=== PATIENT | female | born 1950 | race Caucasian/White ===

== ENCOUNTER 2019-12-15 12:50 | Inpatient (IN) | payer OTHER ==
[~2019-12-15] VITALS: Ht 170.2 cm; Wt 72.6 kg
--- NOTE | 2019-12-15 02:50 | NUR ---
PT REFUSED TO HAVE THE TELE MONITOR ON. IF PUT ON PATIENT WILL PULL IT OFF. Addendum: 12/16/19 at 0321 by Franco Mauricio RN TIME OF INTERVENTION 2049 ON 12/15/19
[~2019-12-15 12:50] MED LIST: AMOX-999 PO; METH40TA PO
--- NOTE | 2019-12-15 12:50 | NUR ---
Patient BIBA ALS accompanied by Kristen MCWILLIAMS 151, transferred to bed 4. RN evaluating patient at bedside.
[2019-12-15 12:51] VITALS: BP 120/73
--- NOTE | 2019-12-15 12:51 | NUR ---
PT BIB AMBULANCE, PER [facility], PT'S WITNESSED ZEIZURE AT HOME FOR ABOUT 3-5 MINUTES. PT WAS GIVEN NARCAN 3 MG AND VERSED 5 MG PRIOR TO HOSPITAL .UNABLE TO FOLLOW COMMANDS. FOAMING SECRATION NOTED WHEN PT GOT TO UNIT, SUCTIONED PT. GAVE PT O2 NC 2L/MIN. PT WAS COMBATIVE, PER EMS, THEY INSERTED IV TO PT, PT PULLED OUT. PT HAD HX DRUG ABUSE. SEIZURE PRECAUTION APPLIED TO PT.
[2019-12-15] MEDS ORDERED: LORazepam 2 MG/ML VIAL IM ONE (12:55)
--- NOTE | 2019-12-15 13:05 | NUR ---
Primitivo randle in ED - 12/15/19 at 1456 by KEZIA ATTEMPTED TO DO AN EKG. UNABLE DUE TO PATIENT RIPPING CORDS OFF CHEST AND FLAILING EXTREMITIES. WILL ATTEMPTED AGAIN AFTER MORE MEDICATION GIVEN.
--- NOTE | 2019-12-15 13:05 | NUR ---
ATTEMPTED TO DO AN EKG. UNABLE DUE TO PATIENT RIPPING CORDS OFF CHEST AND FLAILING EXTREMITIES. WILL ATTEMPTED AGAIN AFTER MORE MEDICATION GIVEN. DR. WALSH MADE AWARE.
--- NOTE | 2019-12-15 13:10 | NUR ---
ATTEMPTED ANOTHER EKG, BUT UNABLE TO OBTAIN DUE TO PATIENT STILL FLAILING AROUND. DR. WALSH MADE AWARE.
[2019-12-15] MEDS ORDERED: LORazepam 2 MG/ML VIAL IVP ONE ×2 (13:20→14:40)
[2019-12-15 13:40] LABS: BASOPHILS # (AUTO) 0.1 K/uL (0.00-0.22); BASOPHILS % (AUTO) 1.5 % (0.0-2.0); EOSINOPHILS # (AUTO) 0.1 K/uL (0-0.4); EOSINOPHILS % (AUTO) 1.3 % (0.0-4.0); HEMATOCRIT 42.9 % (36-48); LYMPHOCYTES # (AUTO) 2.7 K/uL (2.5-16.5); LYMPHOCYTES % (AUTO) 32.1 % (20.5-51.1); MEAN CORPUSCULAR HEMOGLOBIN 29 pg (27-31); MEAN CORPUSCULAR HGB CONC 33 g/dL (33-37); MEAN CORPUSCULAR VOLUME 89.9 fL (80-94); MONOCYTES # (AUTO) 0.5 K/uL (0.8-1.0); MONOCYTES % (AUTO) 5.8 % (1.7-9.3); NEUTROPHILS # (AUTO) 5.1 K/uL (1.8-7.7); NEUTROPHILS % (AUTO) 59.3 % (42.2-75.2); PLATELET COUNT (AUTO) 216 K/uL (140-450); RED BLOOD CELL COUNT(AUTO) 4.77 MIL/uL (4.20-5.40); RED CELL DISTRIBUTION WIDTH 13.6 % (11.6-13.7); WHITE BLOOD COUNT (AUTO) 8.5 K/uL (4.8-10.8)
[2019-12-15 14:12] LABS: ALBUMIN 3.7 g/dL (3.4-5.0); ANION GAP 25.2 (8-16); ASPARTATE AMINOTRANSFERASE 21 U/L (15-37); CHLORIDE 102 mmol/L (98-107); CREATININE 1.1 mg/dL (0.6-1.3); GFR ARICAN-AMERICAN 63 mL/min (>90); GLUCOSE 134 mg/dL (74-106); POTASSIUM 3.2 mmol/L (3.5-5.1); SODIUM SERUM 144 mmol/L (136-145); TOTAL BILIRUBIN 0.3 mg/dL (0.0-1.0); UREA NITROGEN, BLOOD 12 mg/dL (7-18)
[2019-12-15 14:13] LABS: ACETAMINOPHEN < 0.5 ug/ml (10-30); SALICYLATE < 2.8 mg/dL (2.8-20.0)
[2019-12-15] MEDS ORDERED: LORazepam 2 MG/ML VIAL ONE ×2 (14:35→20:47)
[2019-12-15] MEDS ORDERED: HALOPERIDOL IM 5 MG/ML VIAL IM ONE (14:35)
--- NOTE | 2019-12-15 14:51 | NUR ---
PT LEFT FOR CT ACOOMPANIED BY STOCKING AND BOX SHOP SUPERVISOR AND VITO RAZA.
--- NOTE | 2019-12-15 15:05 | NUR ---
Patient returned from CT scan. RN re-evaluating patient at bedside.
[2019-12-15 15:49] LABS: APPEARANCE,URINE CLEAR (CLEAR); BILIRUBIN,URINE NEGATIVE (NEGATIVE); BLOOD, URINE 2+ (NEGATIVE); COLOR,URINE YELLOW (YELLOW); LEUKOCYTE ESTERASE ,URINE NEGATIVE (NEGATIVE); NITRITE, URINE POSITIVE (NEGATIVE); UGLUCOSE NEGATIVE (NEGATIVE)
[2019-12-15 15:55] LABS: BARBITURATE, URINE NEG. ng/ml (NEG <=200); BENZODIAZEPINE, URINE POS. ng/mL (NEG <=200); CANNABINOID, URINE POS. ng/mL (NEG <=50); COCAINE, URINE NEG. ng/mL (NEG <=300); OPIATE, URINE NEG. ng/mL (NEG <=2000); PHENCYCLIDINE SCREEN,URINE NEG. ng/mL (NEG <=25)
--- NOTE | 2019-12-15 15:56 | NUR ---
PT COUGHING WITH YELLOWLISH SECRATION NOTED. SUCTIONED PT.
--- NOTE | 2019-12-15 16:00 | NUR ---
PT SKIN CIRCULATION CHECKED . PT TOLERATED WELL.
[2019-12-15 16:52] LABS: RBC,URINE 11-20 (MOD) /HPF (0-5)
[2019-12-15 16:53] LABS: WBC,URINE 0-5 /HPF (0-5)
--- NOTE | 2019-12-15 17:27 | NUR ---
PT RESTING IN BED. VITAL STABLE. O2 SATS 100 %. NO SOB NOTED.
--- NOTE | 2019-12-15 18:00 | NUR ---
PT SKIN CIRCULATION CHECKED . PT TOLERATED WELL.
[2019-12-15] MEDS ORDERED: cefTRIAXone 1,000 MG VIAL ONE (18:44)
--- NOTE | 2019-12-15 19:05 | NUR ---
ENDORSED PT TO PM SHIFT RN. PT VITALS STABLE.
--- NOTE | 2019-12-15 19:15 | NUR ---
REPORT RECEIVED FROM PREVIOUS RN. PATIENT AOX0, BREATHING EVEN AND UNLABORED. PT IS ON RESTRAINTS. PULSE PRESENT +2 ALL EXTREMITIES, CAP REFILL < 3 SECONDS. GRAPHIC EDITOR NOTIFIED NEED OF SITTER AT BEDSIDE. FAMILY AT BEDSIDE. PATIENT IS TRYING TO GET UP FROM BED, FIGHTING RESTRAINTS.
--- NOTE | 2019-12-15 19:58 | NUR ---
SITTER AT BEDSIDE.
--- NOTE | 2019-12-15 20:00 | NUR ---
PATIENT AOX0, BREATHING EVEN AND UNLABORED. PT WAKES UP THEN CONTINUES TO TRY TO LEAVE BED. AND STEPSON AT BEDSIDE.
[2019-12-15] MEDS ORDERED: LORazepam 2 MG/ML VIAL IVP PRN (20:35)
[2019-12-15] MEDS ORDERED: MAGNESIUM OXIDE 400 MG TAB PO PRN (20:35)
[2019-12-15] MEDS ORDERED: ONDANSETRON 4 MG/2 ML VIAL IVP PRN (20:35)
[2019-12-15] MEDS ORDERED: POTASSIUM CHLORIDE 10 MEQ TABER PO PRN (20:35)
[2019-12-15] MEDS ORDERED: DOCUSATE SODIUM 250 MG GELCAP PO PRN (20:35)
[2019-12-15] MEDS ORDERED: ACETAMINOPHEN 650 MG SUPP RC PRN (20:35)
[2019-12-15] MEDS ORDERED: ZOLPIDEM 5 MG TAB PO PRN (20:35)
[2019-12-15] MEDS ORDERED: ACETAMINOPHEN 325 MG TAB PO PRN (20:35)
[2019-12-15 20:45] VITALS: BP 106/52
--- NOTE | 2019-12-15 20:45 | NUR ---
Patient will be admitted to care of DR LOCK. Admited to TELE. Will go to room 122A. Belongings list completed. Report to FREDI PADRON. Sitter at bedside. Melody Cloudtunnel heading supervisor at bedside, aware of pt status and 4 point restraint. Various RNs at bedside to assist with transfer to new bed.
--- NOTE | 2019-12-15 20:45 | NUR ---
REPORT RECEIVED FROM ED NURSE AT BEDSIDE. PT NOT IN STABLE CONDITION. AAOX0. PT IS VERY COMBATIVE AND AGITATED. UNABLE TO TRANSFER PATIENT TO BED DUE TO PATIENT FLAILING AROUND, KICKING HER FEET, AND ATTEMPTING TO BREAK HER ARMS FREE OF THE RESTRAINT. PT ORIGINALLY CAME IN WITH 4 POINT RESTRAINTS. CALLED ED AND TOLD THEM THAT WE CANNOT ACCEPT PATIENTS WITH 4 POINT RESTRAINTS BUT SAID THAT THEY CANNOT TAKEN PATIENT BACK WHEN THEY LEAVE THE ED. ALSO AT BEDSIDE TELLING HER TO CALM DOWN AND BREAKING DOWN EMOTIONALLY. PT WILL NOT LISTEN TO WHAT ANYONE SAYS AND IS VERY CONFUSED. I CALLED THE MD TO INFORM HIM OF PATIENT AGITATION. MD ORDERED SOFT WRIST RESTRAINTS BILATERAL HANDS AND ATIVAN IVP Q2H PRN FOR AGITATION/ANXIETY. MRSA SWAB TAKEN AND SENT TO LAB. PT IS AMBULATORY. NO COMPLAINTS OF PAIN. NO SOB ON 2L O2 VIA NC. AFEBRILE. IV SITE R FA 22G SL PATENT AND INTACT. SKIN WARM, DRY, AND INTACT WITH NO OPEN WOUNDS. BED LOCKED IN LOW POSITION. CALL CARVAJAL WITHIN REACH. SAFETY PRECAUTION IN PLACE. ALL NEEDS MET AT THIS TIME. Addendum: 12/16/19 at 0309 by Franco Mauricio RN PT HAS BRUISING ON THE ARMS.
[2019-12-15] MEDS: LORazepam 2 MG/ML VIAL IVP PRN ×2 (20:50→22:51)
--- NOTE | 2019-12-15 20:50 | NUR ---
ATIVAN GIVEN FOR AGITATION. PT TOLERATED WELL.
--- NOTE | 2019-12-15 21:00 | NUR ---
AWAITING ORDERS FROM MD. EXPLAINED TO HIM THE SITUATION OF THE PATIENT'S AGITATION LEVEL. HE ORDERED SOFT WRIST RESTRAINTS AND ATIVAN 1MG IVP Q2H PRN FOR AGITATION/ANXIETY. HOLLEY.
--- NOTE | 2019-12-15 21:00 | NUR ---
ROCEPHIN HELD DUE TO PT ALREADY RECEIVING IT IN THE ER.
[2019-12-15] MEDS ORDERED: HALOPERIDOL IM 5 MG/ML VIAL IM PRN (22:10)
--- NOTE | 2019-12-15 22:10 | NUR ---
HALDOL GIVEN FOR AGITATION. PT TOLERATED WELL.
[2019-12-15] MEDS ORDERED: HALOPERIDOL IM 5 MG/ML VIAL ONE (22:13)
--- NOTE | 2019-12-15 22:30 | NUR ---
PT ACCIDENTALLY PULLED OUT IV. CANNULA INTACT. WILL ATTEMPT TO INSERT NEW IV. Addendum: 12/17/19 at 0251 by Franco Mauricio RN INTERVENTION DONE ON 12/16/19
--- NOTE | 2019-12-15 22:51 | NUR ---
ATIVAN GIVEN FOR AGITATION. PT TOLERATED WELL.
[2019-12-16] VITALS: BP 110/67
--- NOTE | 2019-12-16 | NUR ---
PATIENT WILL OCCASIONALLY WAKE UP AND BECOME EXTREMELY AGITATED. UNABLE TO CONSOLE OR CALM HER DOWN AGAIN. PT FLAILS AND KICKS HER LEGS UP IN TO THEIR AIR. PULLS TIGHTLY ON THE SOFT WRIST RESTRAINTS. PT STATES SHE WANTS TO GET OFF OF THE RESTRAINTS AND NEEDS TO USE THE BATHROOM TO URINATE. PT HAS A RODRIGUEZ. PATIENT IS AAOX0 AND EXTREMELY CONFUSED AND COMBATIVE WHILE AWAKE. WENT HOME AROUND 2029 AND HE WAS NOT ABLE TO GET HER UNDER CONTROL. HE LEFT UNDER DURESS AND WAS ALSO NOT ABLE TO CONTAIN HIS EMOTIONS. Addendum: 12/16/19 at 0307 by Franco Mauricio RN PATIENT'S RODRIGUEZ IS NOW DRAINING CONDE COLORED URINE DUE TO TUGGING AT THE RODRIGUEZ. WILL ENDORSE TO AM SHIFT.
[2019-12-16] MEDS: LORazepam 2 MG/ML VIAL IVP PRN ×2 (01:30→05:08)
--- NOTE | 2019-12-16 01:30 | NUR ---
ATIVAN GIVEN FOR AGITATION. PT TOLERATED WELL.
--- NOTE | 2019-12-16 03:00 | NUR ---
PT SLEEPING COMFORTABLY IN THE RESTRAINTS. NO S/S OF DISTRESS OR INJURY NOTED AT THE RESTRAINT SITE. WILL CONTINUE TO MONITOR.
--- NOTE | 2019-12-16 03:10 | NUR ---
ATTEMPTED TO PUT ON TELE. PATIENT REFUSED AND BECAME AGITATED AND COMBATIVE.
[2019-12-16 04:00] VITALS: BP 107/67
--- NOTE | 2019-12-16 05:08 | NUR ---
ATIVAN GIVEN FOR AGITATION. PT TOLERATED WELL.
[2019-12-16 06:08] LABS: BASOPHILS # (AUTO) 0.1 K/uL (0.00-0.22); BASOPHILS % (AUTO) 0.5 % (0.0-2.0); EOSINOPHILS % (AUTO) 0.1 % (0.0-4.0); HEMATOCRIT 40.9 % (36-48); HEMOGLOBIN 13.2 g/dL (12.0-16.0); LYMPHOCYTES # (AUTO) 1.2 K/uL (2.5-16.5); LYMPHOCYTES % (AUTO) 7.8 % (20.5-51.1); MEAN CORPUSCULAR HEMOGLOBIN 30 pg (27-31); MEAN CORPUSCULAR HGB CONC 32 g/dL (33-37); MEAN CORPUSCULAR VOLUME 91.6 fL (80-94); MONOCYTES # (AUTO) 0.9 K/uL (0.8-1.0); MONOCYTES % (AUTO) 6.2 % (1.7-9.3); NEUTROPHILS # (AUTO) 12.8 K/uL (1.8-7.7); NEUTROPHILS % (AUTO) 85.4 % (42.2-75.2); PLATELET COUNT (AUTO) 154 K/uL (140-450); RED BLOOD CELL COUNT(AUTO) 4.47 MIL/uL (4.20-5.40); RED CELL DISTRIBUTION WIDTH 13.5 % (11.6-13.7)
--- NOTE | 2019-12-16 06:20 | NUR ---
PT SLEEPING COMFORTABLY BUT WHEN AWAKE IS AGITATED AND COMBATIVE. PT KICKING, CONFUSED, AND SCREAMING DURING LINEN CHANGE.
[2019-12-16 06:45] LABS: ALBUMIN 3.3 g/dL (3.4-5.0); ANION GAP 13.5 (8-16); CARBON DIOXIDE 28.2 mmol/L (21-32); POTASSIUM 3.7 mmol/L (3.5-5.1); TOTAL BILIRUBIN 0.8 mg/dL (0.0-1.0)
--- NOTE | 2019-12-16 07:20 | NUR ---
RECEIVED BEDSIDE SHIFT REPORT FROM SYSTEMS MANAGEMENT CONSULTANT NURSE FOR CONTINUATION OF CARE.
[2019-12-16 08:00] VITALS: BP 105/58
--- NOTE | 2019-12-16 08:40 | NUR ---
PATIENT HAS BEEN SCREENED AND CATEGORIZED LOW NUTRITION RISK. PATIENT WILL BE SEEN WITHIN 7 DAYS OF ADMISSION. 12/22/[address]
[2019-12-16] MEDS ORDERED: METHADONE HCL 100 MG PO SCH ×2 (09:00→15:09)
--- NOTE | 2019-12-16 09:36 | NUR ---
PATIENT LINEN CHANGED, SPONGE BATH GIVEN, BOWEL MOVEMENT NOTED TO BE DARK GREEN AND SLIGHTLY FORMED, SMALL AMOUNT. RODRIGUEZ CATHETER IN TACT, DRAINING SMALL AMOUNT OF DARK ROHINI URINE. PATIENT IS ORIENTED TO THE HOSPITAL AND ALERT WITH MILD VERBAL AND/OR PAINFUL STIMULI. SHE IS AAOX2/3. PAGE SENT TO DR. MABRY TO CLARIFY METHADONE DOSE PROVIDED BY [facility] [place]. PATIENT HAS NOTABLE GENERALIZED WEAKNESS EVIDENCED BY UNSTEADY GAIT AND POOR BALANCE. BED IS IN LOW POSITION, CALL LIGHT ON AND WITHIN REACH. PATIENT REMAINS ON A 1:1 TO CONTRACT FOR SAFETY. WILL CONTINUE TO MONITOR.
--- NOTE | 2019-12-16 10:22 | NUR ---
Delivery And Mail Sorter Note: SW attempted to conduct screening. Per nurse, patient was sedated. SW will follow up at a later time.
--- NOTE | 2019-12-16 10:31 | NUR ---
DISCHARGE PLANNING: THIS IS A 69 Y/O FEMALE FROM HOME, WHO WAS BIBA DUE TO SEIZURE. INITIAL DIAGNOSIS OF SEIZURE AND UTI. CURRENT LABS INCLUDE WBC 15, H/H 13.2/40.9, NA/K 142/3.7, BUN/CREA 15/1.0. UDS SHOWED POSITIVE FOR BENZO AND AMPHETAMINES. MRSA NARES, BLOOD AND URINE CULTURES PENDING. ON ROCEPHIN. NEURO CONSULT WITH DR. STORY IN PLACE. DC PLAN BACK TO HOME ONCE STABLE. Addendum: 12/18/19 at 1606 by Sherri Pierce DC PLANNING: PT HAS A DC ORDER TO GO HOME WITH HOME HEALTH PER NASIM[facility] AT [facility] [phone] ARRANGED THE HOME HEALTH AND ALSO ARRANGED HIGH RISK CLINIC VISIT WITH [facility]. NASIMA SPOKE WITH PT AND PATIENTS .
[2019-12-16 12:00] VITALS: BP 111/47
--- NOTE | 2019-12-16 12:00 | NUR ---
PATIENT IS SLEEPING IN BED, VERY LETHARGIC AND AWAKENS TO SHAKING. SHE IS IRRITABLE WHEN WOKEN UP. VITAL SIGNS ARE STABLE, OBSERVED CHEST RISE AND FALL, REMAINS ON 1:1 FOR SAFETY AND TO PREVENT INTERRUPTION OF MEDICAL CARE. SHE IS OFF WRIST RESTRAINTS AND IS COMPLIANT WITH CARE AND TREATMENT. VISITORS HAVE COME BY. HER RIGHT FOREARM IV IS SALINE FLUSHED AND PATENT AND FUNCTIONING WELL. WILL CONTINUE TO MONITOR.
[2019-12-16] MEDS ORDERED: METHADONE 10 MG TAB PO SCH (14:45)
--- NOTE | 2019-12-16 14:56 | NUR ---
PATIENT WRIST RESTRAINTS WERE DC'D PER MD'S ORDERS. PATIENT TOLERATING WELL. PATIENT REMAINS ASLEEP AND RESPONDS TO MODERATE AROUSAL. VITAL SIGNS ARE STABLE. WILL CONTINUE TO MONITOR. SKIN INTACT.
[2019-12-16 16:00] VITALS: BP 112/52
[2019-12-16] MEDS: NACL 0.9% 1,000 ML IV SCH (16:22)
--- NOTE | 2019-12-16 17:02 | NUR ---
PATIENT IS RESTING IN BED, RODRIGUEZ CATHETER INTACT AND DRAINING 150 MLS OF DARK YELLOW URINE. SAMPLE OF URINE SENT UP TO THE LAB FOR MYOGLOBIN TESTING PER MD'S ORDERS. PATIENT IS AAOX3, VERY LETHARGIC AND GENERALIZED WEAKNESS. PATIENT IS VERBAL AT TIMES. PATIENT CANNOT RECALL THE REASON FOR HER HOSPITALIZATION AND REQUIRES REORIENTING. NEUROLOGY FOLLOW UP POST DISCHARGE ENCOURAGED BY DR. BOOTH. EDUCATED ON THE IMPORTANCE OF REPORTING SIGNS AND SYMPTOMS OF CONFUSION OR ALTERED LEVEL OF CONSCIOUSNESS. BED IN LOW POSITION, CALL LIGHT ON AND WITHIN REACH. WILL CONTINUE TO MONITOR.
[2019-12-16 17:32] LABS: ANION GAP 13.4 (8-16); CARBON DIOXIDE 29.8 mmol/L (21-32); CREATININE 0.8 mg/dL (0.6-1.3); POTASSIUM 3.2 mmol/L (3.5-5.1); TOTAL BILIRUBIN 0.9 mg/dL (0.0-1.0)
--- NOTE | 2019-12-16 19:24 | NUR ---
BEDSIDE SHIFT REPORT GIVEN TO WOODS BOSS NURSE FOR CONTINUATION OF CARE.
--- NOTE | 2019-12-16 19:25 | NUR ---
REPORT RECEIVED FROM AM NURSE AT BEDSIDE. PT IN STABLE CONDITION. AAOX1-2. INTRODUCED SELF TO PT. BOARD UPDATED. NO COMPLAINTS OF PAIN. NO SOB. AFEBRILE. PT IS AMBULATORY. PT HAS RODRIGUEZ. PT NO LONGER NEEDS A SITTER. IV SITE R FA 22G RUNNING NS@100ML/HR PATENT AND INTACT. SKIN WARM, DRY, AND INTACT WITH NO OPEN WOUNDS. BED LOCKED IN LOW POSITION. CALL CARVAJAL WITHIN REACH. SAFETY PRECAUTION IN PLACE. ALL NEEDS MET AT THIS TIME.
[2019-12-16 20:00] VITALS: BP 153/48
--- NOTE | 2019-12-16 20:05 | NUR ---
RPUDENCIO TONY AND RUNNING. PT TOLERATING WELL.
--- NOTE | 2019-12-16 22:15 | NUR ---
PT SLEEPING COMFORTABLY BUT AROUSABLE. NO S/S OF DISTRESS NOTED. NO SZ ACTIVITY ON MY SHIFT. WILL CONTINUE TO MONITOR.
[2019-12-17] VITALS: BP 94/43
--- NOTE | 2019-12-17 00:30 | NUR ---
ATTEMPTED TO INSERT IV UNSUCCESSFULLY. WILL TRY AGAIN.
--- NOTE | 2019-12-17 02:30 | NUR ---
PT SLEEPING COMFORTABLY BUT AROUSABLE. NO S/S OF DISTRESS NOTED. NO COMPLAINTS OF PAIN. NO SOB. AFEBRILE. WILL CONTINUE TO MONITOR.
[2019-12-17 04:00] VITALS: BP 118/59
[2019-12-17] MEDS: NACL 0.9% 1,000 ML IV SCH ×3 (04:14→21:45)
--- NOTE | 2019-12-17 04:30 | NUR ---
PT SLEEPING COMFORTABLY BUT AROUSABLE. NO S/S OF DISTRESS NOTED. RESPIRATIONS EVEN, UNLABORED, AND WNL. WILL CONTINUE TO MONITOR.
--- NOTE | 2019-12-17 06:05 | NUR ---
PT SLEEPING COMFORTABLY BUT AROUSABLE. NO S/S OF DISTRESS NOTED. WILL CONTINUE TO MONITOR.
--- NOTE | 2019-12-17 07:12 | NUR ---
REPORT GIVEN TO AM NURSE AT BEDSIDE. PT IN STABLE CONDITION.
--- NOTE | 2019-12-17 07:12 | NUR ---
RECEIVED BEDSIDE REPORT FROM NIGHT NURSE, PT IS STABLE, ASLEEP IN BED, SAFETY MEASURES IN PLACE, PT HAS LEFT WRIST 22G RUNNING NS AT 100ML, RODRIGUEZ CATH IN PLACE, UPDATED WHITEBOARD, WILL CONTINUE TO MONITOR, CALL LIGHT WITHIN REACH,
[2019-12-17 07:49] LABS: BASOPHILS % (AUTO) 0.2 % (0.0-2.0); EOSINOPHILS % (AUTO) 0.1 % (0.0-4.0); HEMATOCRIT 40.1 % (36-48); HEMOGLOBIN 13.4 g/dL (12.0-16.0); LYMPHOCYTES # (AUTO) 1.5 K/uL (2.5-16.5); LYMPHOCYTES % (AUTO) 13.8 % (20.5-51.1); MEAN CORPUSCULAR HEMOGLOBIN 30 pg (27-31); MEAN CORPUSCULAR HGB CONC 33 g/dL (33-37); MEAN CORPUSCULAR VOLUME 89.3 fL (80-94); MONOCYTES # (AUTO) 0.6 K/uL (0.8-1.0); MONOCYTES % (AUTO) 5.8 % (1.7-9.3); NEUTROPHILS # (AUTO) 8.8 K/uL (1.8-7.7); NEUTROPHILS % (AUTO) 80.1 % (42.2-75.2); PLATELET COUNT (AUTO) 178 K/uL (140-450); RED BLOOD CELL COUNT(AUTO) 4.49 MIL/uL (4.20-5.40); RED CELL DISTRIBUTION WIDTH 13.4 % (11.6-13.7)
[2019-12-17 08:00] VITALS: BP 120/58
[2019-12-17 08:09] LABS: ANION GAP 10.9 (8-16); CARBON DIOXIDE 30.5 mmol/L (21-32); CREATININE 0.9 mg/dL (0.6-1.3); POTASSIUM 3.4 mmol/L (3.5-5.1); TOTAL BILIRUBIN 0.6 mg/dL (0.0-1.0)
[2019-12-17] MEDS ORDERED: METHADONE HCL 100 MG PO SCH (09:00)
[2019-12-17] MEDS: ENOXAPARIN 40 MG/0.4 ML SYR SUBQ SCH (09:17)
[2019-12-17] MEDS ORDERED: METHADONE 10 MG TAB PO SCH (10:30)
--- NOTE | 2019-12-17 10:44 | NUR ---
HELPED PT USE THE BEDSIDE COMMODE, PT NEEDS ASSIST TO SIT ON COMMODE, PT NEEDS HELP GETTING BACK IN BED AND LIFTING HER LEGS INTO BED, PT STABLE, CALL LIGHT WITHIN REACH, WILL CONTINUE TO MONITOR. Addendum: 12/17/19 at 1610 by Vee Kothari RN WRONG PT
[2019-12-17 12:00] VITALS: BP 130/54
--- NOTE | 2019-12-17 13:30 | NUR ---
PT RESTING IN BED, NO SIGNS OF DISTRESS, RESPIRATIONS ARE EVEN AND UNLABORED ON ROOM AIR, CALL LIGHT WITHIN REACH.
[2019-12-17] MEDS ORDERED: VALPROATE SODIUM 1,000 MG in NACL 0.9% 100 ML IV SCH (15:00)
--- NOTE | 2019-12-17 15:00 | NUR ---
PT ASLEEP IN BED, PT IS STABLE, CALL LIGHT WITHIN REACH.
[2019-12-17 16:00] VITALS: BP 116/61
--- NOTE | 2019-12-17 19:30 | NUR ---
GAVE REPORT TO NIGHT NURSE FOR CONTINUITY OF CARE, PT STABLE.
--- NOTE | 2019-12-17 19:31 | NUR ---
HELPED PT USE THE BEDSIDE COMMODE, PT NEEDS ASSIST TO THE BATHROOM 1 BM NOTED, PT NEEDS HELP GETTING BACK IN BED AND LIFTING HER LEGS INTO BED, PT STABLE, CALL LIGHT WITHIN REACH, WILL CONTINUE TO MONITOR.
--- NOTE | 2019-12-17 19:31 | NUR ---
REPORT RECEIVED FROM AM NURSE AT BEDSIDE. PT IN STABLE CONDITION. AAOX1-2. INTRODUCED SELF TO PT. W/ AT BEDSIDE.NO COMPLAINTS OF PAIN. NO SOB. AFEBRILE. PT IS AMBULATORY. PT HAS RODRIGUEZ. PT NO LONGER NEEDS A SITTER. IV SITE LEFT HAND 24G RUNNING NS@100ML/HR PATENT AND INTACT. SKIN WARM, DRY, AND INTACT WITH NO OPEN WOUNDS. BED LOCKED IN LOW POSITION. CALL CARVAJAL WITHIN REACH. SAFETY PRECAUTION IN PLACE. ALL NEEDS MET AT THIS TIME.
[2019-12-17 20:00] VITALS: BP 108/60
[2019-12-17] MEDS: DIVALPROEX 500 MG TABEC PO SCH (20:07)
--- NOTE | 2019-12-17 20:57 | NUR ---
PT NOW SLEEPING, CALM WILL CONTINUE TO MONITOR
--- NOTE | 2019-12-17 23:00 | NUR ---
PT'S CALLED TO CHECK ON ; INFORMED HER PT COMFORTABLE AND SLEEPING AT THIS TIME
[2019-12-18] VITALS: BP 108/60
[2019-12-18 04:00] VITALS: BP 110/60
--- NOTE | 2019-12-18 04:14 | NUR ---
PT STILL SLEEPING BY CAN EASILY AWAKENED BY TACTILE STIMULI.
[2019-12-18] MEDS: NACL 0.9% 1,000 ML IV SCH (04:35)
[2019-12-18 07:10] LABS: BASOPHILS # (AUTO) 0.1 K/uL (0.00-0.22); BASOPHILS % (AUTO) 0.7 % (0.0-2.0); EOSINOPHILS # (AUTO) 0.1 K/uL (0-0.4); EOSINOPHILS % (AUTO) 0.7 % (0.0-4.0); HEMATOCRIT 34.6 % (36-48); LYMPHOCYTES # (AUTO) 1.9 K/uL (2.5-16.5); LYMPHOCYTES % (AUTO) 19.2 % (20.5-51.1); MEAN CORPUSCULAR HEMOGLOBIN 30 pg (27-31); MEAN CORPUSCULAR HGB CONC 35 g/dL (33-37); MEAN CORPUSCULAR VOLUME 88.1 fL (80-94); MONOCYTES # (AUTO) 0.9 K/uL (0.8-1.0); MONOCYTES % (AUTO) 8.9 % (1.7-9.3); NEUTROPHILS # (AUTO) 7.1 K/uL (1.8-7.7); NEUTROPHILS % (AUTO) 70.5 % (42.2-75.2); PLATELET COUNT (AUTO) 161 K/uL (140-450); RED BLOOD CELL COUNT(AUTO) 3.93 MIL/uL (4.20-5.40); RED CELL DISTRIBUTION WIDTH 13.1 % (11.6-13.7)
--- NOTE | 2019-12-18 07:10 | NUR ---
RECEIVED REPORT FROM NIGHT NURSE, PT IS AAOX3, PT IS STABLE, PT HAS LEFT WRIST 24G RUNNING NORMAL SALINE AT 100 ML, RODRIGUEZ CATH IN PLACE, INTRODUCE SELF, UPDATE WHITE BOARD, SAFETY MEASURES IN PLACE, CALL LIGHT WITHIN REACH, WILL CONTINUE TO MONITOR.
[2019-12-18 07:56] LABS: ALBUMIN 2.6 g/dL (3.4-5.0); ANION GAP 9.8 (8-16); CARBON DIOXIDE 29.8 mmol/L (21-32); CREATININE 0.7 mg/dL (0.6-1.3); POTASSIUM 3.6 mmol/L (3.5-5.1); TOTAL BILIRUBIN 0.5 mg/dL (0.0-1.0)
[2019-12-18 08:00] VITALS: BP 109/58
[2019-12-18] MEDS: DIVALPROEX 500 MG TABEC PO SCH (08:46)
[2019-12-18] MEDS: ENOXAPARIN 40 MG/0.4 ML SYR SUBQ SCH (08:47)
--- NOTE | 2019-12-18 08:47 | NUR ---
GAVE PT ORDERED MEDICATION, EDUCATION GIVEN, PT VERBALIZED UNDERSTANDING, PT IS STABLE, NO SIGNS OF DISTRESS NOTED, CALL LIGHT WITHIN REACH.
[2019-12-18] MEDS ORDERED: METHADONE 10 MG TAB PO SCH (09:00)
--- NOTE | 2019-12-18 11:00 | NUR ---
PT IS RESTING IN BED, AT BEDSIDE, NO SIGNS OF DISTRESS NOTED, CALL LIGHT WITHIN REACH.
[2019-12-18 12:00] VITALS: BP 116/58
--- NOTE | 2019-12-18 13:10 | NUR ---
PT IS SITTING IN HER BED, PT IS STABLE, NO SIGNS OF DISTRESS NOTED, CALL LIGHT WITHIN REACH.
[2019-12-18] MEDS ORDERED: [UNRECOGNIZED DRUG - CODE] PO (13:16)
[2019-12-18] MEDS ORDERED: CEPH-1019 PO (13:16)
[2019-12-18] MEDS ORDERED: DIVA500E2 PO (13:16)
--- NOTE | 2019-12-18 16:05 | NUR ---
PT DISCHARGED FROM THE HOSPITAL, PT IS STABLE, RODRIGUEZ CATH REMOVED, IV REMOVED AND INTACT, PT WAS WHEELED OUT OF THE HOSPITAL TO CAR, PT AMBULATE AND GOT INTO THE CAR WITH ASSISTANCE, PT REFUSED FLU AND PNA VACCINE.
== END 2019-12-18 16:05 | disposition home or self-care (01) | DRG 100 ==
LOC: MED 12:50 → MTU 19:07
PROVIDERS: ADMIT Hospitalist; ATTEND Hospitalist
DX: G40.409 Other generalized epilepsy and epileptic syndromes, not intractable, without status epilepticus (principal); R65.11 Systemic inflammatory response syndrome (SIRS) of non-infectious origin with acute organ dysfunction; N39.0 Urinary tract infection, site not specified; F11.20 Opioid dependence, uncomplicated; E87.6 Hypokalemia; N18.3 Chronic kidney disease, stage 3 (moderate); F12.10 Cannabis abuse, uncomplicated; G40.909 Epilepsy, unspecified, not intractable, without status epilepticus; R82.3 Hemoglobinuria; Z79.899 Other long term (current) drug therapy; Z78.1 Physical restraint status
CPT/HCPCS: 36415; 70450; 71045; 80053; 80305; 81001; 81003; 82553; 83874; 84484; 85025; 87040; 87081; 87086; 87186; 93005; 96365; 96372; 96375; 97112; 97116; 97161-GP; 99285; G0480; G0482; J0696; J1630; J1650; J2060; J3490; J7030; J7060; Q0092

== ENCOUNTER 2020-01-25 06:20 | Emergency (ER) | payer OTHER ==
[~2020-01-25] VITALS: Ht 165.1 cm; Wt 59.0 kg
[2020-01-25 06:20] VITALS: BP 111/50
[~2020-01-25 06:20] MED LIST changes: -AMOX-999 PO; +CEPH-1019 PO; +DIVA500E2 PO; +[UNRECOGNIZED DRUG - CODE] PO
--- NOTE | 2020-01-25 06:20 | NUR ---
Dr. Lau examining patient.
--- NOTE | 2020-01-25 06:20 | NUR ---
PT SENAIT ALS. TAKEN TO BED 4
--- NOTE | 2020-01-25 06:20 | NUR ---
69 Y/O FEMALE BROUGHT INTO ER BY BLS. BLS STATED THEY WERE CALLED OUT DUE TO PT HAVING SEIZURE. BLS STATED THEY SEEN PT HAVING SEIZURE, HOWEVER ARE UNAWARE OF HOW LONG THE SEIZURE HAD BEEN GOING ON. BLS ALSO STATED PT WAS COMBATIVE, ON RESTRAINTS. UPON ARRIVAL, PT WAS POSTICTAL ABLE TO FOLLOW COMMANDS, NON VERBAL AT THIS TIME. NO OTHER MEDICAL HX. NO SEIZURE ACTIVITY AT THIS TIME. VSS. NKDA. RESTING IN BED QUIETLY, SIDERAILX 2, SEIZURE PADS IN PLACE. WILL CONTINUE TO MONITOR.
[2020-01-25] MEDS ORDERED: NACL 0.9% 1,000 ML IV ONE (06:25)
[2020-01-25] MEDS ORDERED: levETIRAcetam 500 MG in NACL 0.9% 100 ML IV ONE (06:25)
--- NOTE | 2020-01-25 06:35 | NUR ---
X-Ray at bedside.
[2020-01-25] MEDS ORDERED: levETIRAcetam 100 MG/ML VIAL IV ONE (06:38)
--- NOTE | 2020-01-25 06:50 | NUR ---
PT ALERT TO NAME, FOLLOWING COMMANDS. STATES SHE DOESN'T REMEMBER WHAT HAPPENEND. PT'S SIGNIFICANT OTHER IN LOBBY STATES PT WAS PUT ON DEPAKOTE 500MG QD LAST MONTH FOR SEIZURES, AND MAINTENANCE DOSE OF METHADONE LAST MONTH.
[2020-01-25 07:04] LABS: BASOPHILS # (AUTO) 0.1 K/uL (0.00-0.22); BASOPHILS % (AUTO) 0.8 % (0.0-2.0); EOSINOPHILS # (AUTO) 0.1 K/uL (0-0.4); EOSINOPHILS % (AUTO) 1.1 % (0.0-4.0); HEMATOCRIT 45.1 % (36-48); HEMOGLOBIN 14.6 g/dL (12.0-16.0); LYMPHOCYTES # (AUTO) 1.2 K/uL (2.5-16.5); LYMPHOCYTES % (AUTO) 18.8 % (20.5-51.1); MEAN CORPUSCULAR HEMOGLOBIN 30 pg (27-31); MEAN CORPUSCULAR HGB CONC 32 g/dL (33-37); MEAN CORPUSCULAR VOLUME 92.8 fL (80-94); MONOCYTES # (AUTO) 0.3 K/uL (0.8-1.0); MONOCYTES % (AUTO) 4.6 % (1.7-9.3); NEUTROPHILS # (AUTO) 4.9 K/uL (1.8-7.7); NEUTROPHILS % (AUTO) 74.7 % (42.2-75.2); PLATELET COUNT (AUTO) 175 K/uL (140-450); RED BLOOD CELL COUNT(AUTO) 4.86 MIL/uL (4.20-5.40); RED CELL DISTRIBUTION WIDTH 13.8 % (11.6-13.7); WHITE BLOOD COUNT (AUTO) 6.6 K/uL (4.8-10.8)
[2020-01-25 07:18] LABS: ALBUMIN 3.8 g/dL (3.4-5.0); ANION GAP 14.5 (8-16); CARBON DIOXIDE 29.1 mmol/L (21-32); POTASSIUM 3.6 mmol/L (3.5-5.1); TOTAL BILIRUBIN 0.2 mg/dL (0.0-1.0)
--- NOTE | 2020-01-25 07:28 | NUR ---
RECIEVED REPORT FROM VITO FRANCOIS. PT IN BED SLEEPING , WITH STABLE V/S , SEIZURE PRECAUTION ON.
--- NOTE | 2020-01-25 07:28 | NUR ---
EDILBERTO IV FLUIDS COMPLETED
--- NOTE | 2020-01-25 07:29 | NUR ---
TRANSFER OF CARE TO VITO FISHMAN
--- NOTE | 2020-01-25 08:24 | NUR ---
PT IN BED ASLEEP , SIDE RAILS UP WITH PADS X 2 AND LOCK.
[2020-01-25] MEDS ORDERED: METHADONE 10 MG TAB PO ONE (09:10)
--- NOTE | 2020-01-25 09:18 | NUR ---
CALLED TO VERIFY DOSAGE OF METHADONE BEING TAKEN AT HOME.
--- NOTE | 2020-01-25 09:49 | NUR ---
PT IN BED AWAKE , ALERT , AFIBRILE .
--- NOTE | 2020-01-25 09:52 | NUR ---
PT AOX 2 , ALTERED LOC.
--- NOTE | 2020-01-25 10:00 | NUR ---
PT WENT TO RESTROOM ,AMBULATORY WITH STEADY GAIT .PT STATES SHE ONE EPISODE OF SEIZURE AND THIS IS THE SECOND ONE.
--- NOTE | 2020-01-25 10:12 | NUR ---
PT IN BACK FROM RESTROOM.
[2020-01-25 10:30] VITALS: BP 122/60
--- NOTE | 2020-01-25 10:30 | NUR ---
Patient to be transferred to [facility]. Is being transferred due to insurance. Receiving facility has accepting physician and available space. ER physician has signed transfer form. Patient or responsible alliance party has agreed to transfer and signed form. Patient belongings inventoried and will be sent with patient. Copy of nursing notes, lab reports, EKG, Physicians Orders and X-rays to be sent with patient. Report called to cristin at receiving facility. [facility] has been called for transfer. ETA is 12 minutes.
--- NOTE | 2020-01-26 08:17 | NUR ---
Late entry. Confirmed with RN that 0.9 NS IV completed at 1030
== END 2020-01-25 10:30 | disposition short-term general hospital (02) ==
LOC: MED 06:20
DX: G40.909 Epilepsy, unspecified, not intractable, without status epilepticus (principal); Z79.899 Other long term (current) drug therapy
CPT/HCPCS: 36415; 71045; 80053; 85025; 93005; 96365; 99291; J1953; J7030; Q0092; 99285

== ENCOUNTER 2021-09-21 12:12 | Emergency (ER) | payer OTHER ==
[~2021-09-21] VITALS: Ht 167.6 cm; Wt 63.5 kg
--- NOTE | 2021-09-21 12:26 | NUR ---
BIBA TO BED 11
--- NOTE | 2021-09-21 12:29 | NUR ---
DR MIGUEL EXAMINING PT
[2021-09-21 12:34] VITALS: BP 109/41
--- NOTE | 2021-09-21 12:34 | NUR ---
71 Y/O FEMALE C/O ALOC S/P SUSPECTED SZR. BIBA. SPOUSE RETURNED FROM [place] AND FOUND PT UNRESPONSIVE TO PAIN OR VERBAL. SPOUSE STATES "THIS IS SIMILAR REACTION TO WHEN PT HAS A SZR." NO ALS INTERVENTION EN ROUTE. PT TRANSFERED TO BED 11. PT RESINT IN BED WITH RAILS UP X2, IN LOWEST SETTING. HX: SZR NKDA MEDS: "UNK SZR MEDICATION" PER EMS
--- NOTE | 2021-09-21 12:38 | NUR ---
PT TAKEN TO CT SCAN VIA CARL
[2021-09-21] MEDS ORDERED: NACL 0.9% 1,000 ML IV ONE ×2 (12:40→14:00)
--- NOTE | 2021-09-21 12:51 | NUR ---
PT RETURNED FROM IMAGING
--- NOTE | 2021-09-21 13:10 | NUR ---
LABS AT BEDSIDE
[2021-09-21 13:21] LABS: BASOPHILS # (AUTO) 0.1 K/uL (0.00-0.22); BASOPHILS % (AUTO) 0.4 % (0.0-2.0); HEMATOCRIT 42.8 % (36-48); HEMOGLOBIN 13.9 g/dL (12.0-16.0); LYMPHOCYTES # (AUTO) 0.7 K/uL (2.5-16.5); LYMPHOCYTES % (AUTO) 4.6 % (20.5-51.1); MEAN CORPUSCULAR HEMOGLOBIN 29 pg (27-31); MEAN CORPUSCULAR HGB CONC 33 g/dL (33-37); MEAN CORPUSCULAR VOLUME 90.3 fL (80-94); MONOCYTES # (AUTO) 0.6 K/uL (0.8-1.0); MONOCYTES % (AUTO) 4.5 % (1.7-9.3); NEUTROPHILS % (AUTO) 90.5 % (42.2-75.2); PLATELET COUNT (AUTO) 183 K/uL (140-450); RED BLOOD CELL COUNT(AUTO) 4.74 MIL/uL (4.20-5.40); RED CELL DISTRIBUTION WIDTH 13.9 % (11.6-13.7); WHITE BLOOD COUNT (AUTO) 14.3 K/uL (4.8-10.8)
--- NOTE | 2021-09-21 13:30 | NUR ---
# 16 FR Urinary catheter inserted utilizing sterile technique. Immediate return of 30ML OF YELLOW urine noted. Urine sample collected and sent to lab. Pt tolerated procedure WELL.
[2021-09-21 13:42] LABS: APPEARANCE,URINE HAZY (CLEAR); BILIRUBIN,URINE NEGATIVE (NEGATIVE); BLOOD, URINE 2+ (NEGATIVE); COLOR,URINE YELLOW (YELLOW); PH,URINE 6.5 (5.0-9.0); UGLUCOSE NEGATIVE (NEGATIVE)
[2021-09-21 13:53] LABS: BARBITURATE, URINE NEGATIVE ng/ml (NEG <=200); BENZODIAZEPINE, URINE NEGATIVE ng/mL (NEG <=200); CANNABINOID, URINE POSITIVE ng/mL (NEG <=50); COCAINE, URINE NEGATIVE ng/mL (NEG <=300); LEUKOCYTE ESTERASE ,URINE 1+ (NEGATIVE); OPIATE, URINE NEGATIVE ng/mL (NEG <=2000); PHENCYCLIDINE SCREEN,URINE NEGATIVE ng/mL (NEG <=25)
[2021-09-21 13:55] LABS: NITRITE, URINE POSITIVE (NEGATIVE)
[2021-09-21] MEDS ORDERED: cefTRIAXone 2,000 MG in DEXTROSE 5% 100 ML IV ONE (14:00)
[2021-09-21] MEDS ORDERED: VANCOMYCIN PER PHARMACY MC PRN (14:10)
[2021-09-21] MEDS ORDERED: VANCOMYCIN 1GM/DEXT 5% PREMIX 200 ML IV ONE (14:10)
[2021-09-21] MEDS ORDERED: cefTRIAXone 2,000 MG VIAL ONE (14:15)
--- NOTE | 2021-09-21 14:15 | NUR ---
XRAY AT BEDSIDE
--- NOTE | 2021-09-21 14:16 | NUR ---
Primitivo randle in [facility] - 09/21/21 at 1416 by [email or web address] HARJINDER AT BEDSIDE
[2021-09-21] MEDS ORDERED: VANCOMYCIN 1,000 MG VIAL ONE (14:41)
--- NOTE | 2021-09-21 15:06 | NUR ---
XRAY AT BEDSIDE
[2021-09-21 15:17] LABS: ALBUMIN 3.8 g/dL (3.4-5.0); ANION GAP 18.1 (8-16); ASPARTATE AMINOTRANSFERASE 29 U/L (15-37); CARBON DIOXIDE 24.5 mmol/L (21-32); CHLORIDE 101 mmol/L (98-107); CREATININE 1.1 mg/dL (0.6-1.3); GLUCOSE 203 mg/dL (74-106); POTASSIUM 3.6 mmol/L (3.5-5.1); SODIUM SERUM 140 mmol/L (136-145); TOTAL BILIRUBIN 0.4 mg/dL (0.0-1.0); UREA NITROGEN, BLOOD 16 mg/dL (7-18)
--- NOTE | 2021-09-21 16:20 | NUR ---
Physician order given to place bilat soft wrist type restraints to prevent pulling out IV lines. Restraints placed with quick-release ties to bed. Pt under observation.
[2021-09-21] MEDS ORDERED: LAM25 PO (17:33)
[2021-09-21] MEDS ORDERED: METH-1550 PO (17:33)
[2021-09-21] MEDS: DIVALPROEX 500 MG TABEC PO SCH ×2 (17:35→21:00)
--- NOTE | 2021-09-21 18:11 | NUR ---
LAB AT BEDSIDE
--- NOTE | 2021-09-21 18:15 | NUR ---
PT UNABLE TO SWALLOW PO MED, DEPAKOTE NON ADMINISTERED.
--- NOTE | 2021-09-21 18:32 | NUR ---
CALLED BELA YANCEY TO GIVE REPORT. SPOKE WITH CHARGE NURSE ROLANDO PADRON. SHE STATED THERE WAS AN ISSUE WITH ADMITTING AND WILL RECONTACT. EXT:[id number]
--- NOTE | 2021-09-21 18:33 | NUR ---
PT'S AT BEDSIDE
--- NOTE | 2021-09-21 19:17 | NUR ---
Received report from Meliton PADRON for continuity of care.
--- NOTE | 2021-09-21 19:20 | NUR ---
Pt report given to Caitlin RN. Transfer of care at this time.
--- NOTE | 2021-09-21 19:21 | NUR ---
Patient appears to be resting comfortably in bed- low fowlers, eyes open with a bolus of NS running through right EJ. Vital Signs within normal limits. Respirations even and unlabored. No signs of distress noted. Soft restraints in place. Safety measures are in place, patient on the monitor, and will continue to monitor patient.
--- NOTE | 2021-09-21 20:13 | NUR ---
S/W BRUCE, FROM [facility] WHO STATED DISK OPERATOR AT [facility] WILL NOT ACCEPT PT TO FACILITY WITHOUT REPEAT LACTIC ACID. DR. WALSH MADE AWARE.
--- NOTE | 2021-09-21 20:13 | NUR ---
called for report/updates on patient.
--- NOTE | 2021-09-21 21:40 | NUR ---
patient pulled Right EJ out by self catheter intact and site benign. Applied folded 4x4 gauze and tape to stop bleeding.--- ERMD made aware.
--- NOTE | 2021-09-21 21:40 | NUR ---
Primitivo randle in [facility] - 09/22/21 at 0650 by [email or web address] patient pulled Right EJ out by self catheter intact and site benign. Applied folded 4x4 gauze and tape to stop bleeding.
--- NOTE | 2021-09-21 21:42 | NUR ---
PATIENT AGGRAVATED AND URINATED IN BED. PERICARE PROVIDED AND CHANGED SHEETS. PATIENT TOLERATED WELL
--- NOTE | 2021-09-21 22:00 | NUR ---
PATIENT AGGRAVATED AND WAS ABLE TO GET OUT OF BED. PATIENT A BIT MORE COOPERATIVE AND USED A COMMODE TO URINATE. PATIENT TOLERATED WELL AND IS NOW BACK IN BED. PERICARE PROVIDED FOR PATIENT.
--- NOTE | 2021-09-21 22:20 | NUR ---
D/C soft restraints as patient more alert, awake, and cooperative.
--- NOTE | 2021-09-21 23:40 | NUR ---
provided isaak care for patient, patient was able to use bedside commode-- patient tolerated well.
--- NOTE | 2021-09-21 23:54 | NUR ---
Patient to be transferred to [facility]. Is being transferred due to Insurance purposes. Receiving facility has accepting physician and available space. ER physician has signed transfer form. Patient or responsible green party has agreed to transfer and signed form. Patient belongings inventoried and will be sent with patient. Copy of nursing notes, lab reports, EKG, Physicians Orders and X-rays to be sent with patient. Report called to Tamera PADRON at receiving facility. [facility] ambulance service has been called for transfer. ETA is at 00:00-00:30.
--- NOTE | 2021-09-22 00:10 | NUR ---
[facility] TRAN[facility]ORT AT BEDSIDE
--- NOTE | 2021-09-22 00:18 | NUR ---
called Tamera PADRON from receiving facility due to inability to place an IV after numerous tries. Tamera RN accepted without an IV and EMS aware and comfortable for tx.
[2021-09-22 00:49] VITALS: BP 163/60
--- NOTE | 2021-09-22 00:49 | NUR ---
PT TAKEN BY [facility] TO [facility]
== END 2021-09-22 00:49 | disposition short-term general hospital (02) ==
LOC: MED 12:12
DX: N39.0 Urinary tract infection, site not specified (principal); Z20.822 Contact with and (suspected) exposure to COVID-19; R65.20 Severe sepsis without septic shock; G93.40 Encephalopathy, unspecified; Z79.899 Other long term (current) drug therapy
CPT/HCPCS: 36415; 70450; 71045; 80053; 80305; 81001; 82140; 83605; 85025; 87040; 87086; 87426; 96361; 96365; 96367; 99291; J0696; J3370; J7030